=== PATIENT | male | born 1970 | race Caucasian/White ===

== ENCOUNTER 2017-03-25 20:46 | Emergency (ER) | payer OTHER | END 2017-03-25 22:30 | disposition home or self-care (01) | LOC: ER1 20:46 | DX: S82.831A Other fracture of upper and lower end of right fibula, initial encounter for closed fracture (principal); S93.401A Sprain of unspecified ligament of right ankle, initial encounter; W18.09XA Striking against other object with subsequent fall, initial encounter | CPT/HCPCS: 29515; 73590; 73610; 99283 ==